=== PATIENT | female | born 1995 | race Caucasian/White ===

== ENCOUNTER 2019-07-23 11:38 | Observation (INO) | payer BC ==
[2019-07-23 12:54] LABS: #Lymphocytes 0.8 thou/uL (1.20-3.40); #Monocytes 0.6 thou/uL (0.11-0.59); %Basophils 0.1 % (0.0-1.0); %Eosinophils 0.1 % (0.0-10.0); %Lymphocytes 5.7 % (21.0-51.0); %Monocytes 3.9 % (0.0-10.0); %Neutrophils 90.2 % (42.0-75.0); Hemoglobin 10.5 g/dL (12.0-16.0); Mean Corpuscular HGB CONC 34.3 g/dL (32.0-36.0); Mean Corpuscular Hemoglobin 30.7 pg (27.0-31.0); Mean Corpuscular Volume 89.7 fL (78.0-98.0); Mean Platelet Volume 9.9 fL (7.4-10.4); Platelet Count 208 thou/uL (130-400); RBC Distribution Width 11.4 % (11.5-14.5); Red Blood Cell (RBC) Count 3.41 mill/uL (4.20-5.40); White Blood Cell (WBC) Count 14.4 thou/uL (4.8-10.8)
[2019-07-23 13:02] LABS: BHCG - Serum Negative (NEGATIVE); Pregs Control Background? CLEAR/WHITE (CLR/WHITE); Pregs Control Bar Appear? YES (CONTROL BAR)
[2019-07-23 13:22] LABS: ALT (SGPT) 11 U/L (8-55); AST (SGOT) 11 U/L (5-34); Albumin 4.5 g/dL (3.5-5.0); Alkaline Phosphatase 73 U/L (40-110); Anion Gap 14 mmol/L (10-20); BUN (Urea Nitrogen) 17 mg/dL (7.0-18.7); Bilirubin, Total 0.5 mg/dL (0.2-1.2); Calc. Creatinine Clearance 0 mL/min (70-130); Calcium 9.3 mg/dL (7.8-10.44); Carbon Dioxide 22 mmol/L (22-29); Chloride 105 mmol/L (98-107); Estimated GFR-MDRD Greater than 90; Globulin 2.2 g/dL (2.4-3.5); Glucose 150 mg/dL (70-105); Lipase 9 U/L (8-78); Potassium 4.4 mmol/L (3.5-5.1); Protein, Total 6.7 g/dL (6.0-8.3); Sodium 137 mmol/L (136-145)
[2019-07-23] MEDS ORDERED: Ondansetron PF 4 MG/2 ML Vial ONE ×2 (14:04→19:57)
[2019-07-23] MEDS ORDERED: cefOXitin 2 GM VIAL ONE (14:04)
--- NOTE | 2019-07-23 14:22 | ULT ---
US Pelvic W Doppler HISTORY: Pelvic pain COMPARISON: None TECHNIQUE: Multiple grayscale and color Doppler images were obtained in a transabdominal pelvic ultra sound. Spectral analysis of the Doppler waveforms of the ovaries were performed. FINDINGS: Uterus is heterogeneous. There is prominence of the endometrium. About the uterus, there is complex f ree pelvic fluid. Within the right ovary there is a complex hypoechoic focus with internal increased echogenicity, measuring 2.6 x 2.1 cm. Left ovary is not visualized for comment. Urinary lissa dder is decompressed. IMPRESSION: 1. Abnormal complex appearing free pelvic fluid, moderate in volume. This could either relate to inf ectious/inflammatory process, or alternatively could relate to rupture of hemorrhagic follicle or sequela from ruptured ectopic . This should be correlated with laboratory values, including beta hCG values. 2. Complex right adnexal cystic lesion that could relate to a hemorrhagic follicle. This should be f ollowed at a 6 week interval to confirm physiologic resolution. Transcribed Date/Time: 07/23/2019 2:37 PM
[2019-07-23] MEDS ORDERED: Fentanyl 100 MCG/2 ML VIAL ONE ×4 (15:24→18:09)
--- NOTE | 2019-07-23 15:46 | CT ---
CT abdomen and pelvis with IV and oral contrast HISTORY: Pelvic pain. Abnormal sonogram. Free fluid. Tachycardia. FINDINGS: Lung bases are clear. Solid organs of the abdomen are intact. No evidence of bowel obstruct ion. Moderate amount of free fluid within the pelvis, extending into the abdomen. The fluid is slightly hy perdense in the abdomen and more hyperdense within the pelvis, surrounding the uterus and adnexa. Cyst at the right adnexa measures up to 3.0 cm greatest diameter on the CT exam. Fluid is seen within the endometrial cavity of the nonenlarged uterus. IMPRESSION: Moderate amount of hyperdense fluid throughout the abdomen and pelvis, favored to be bloo d, of gynecologic origin. Right ovarian cyst 3.0 cm.
[2019-07-23 16:11] LABS: Bilirubin Small (Negative); Blood, Urine Negative (Negative); Glucose, Urine (Dipstick) Negative (Negative); Leukocyte Negative (Negative); Nitrite Negative (Negative); Protein, Urine (Dipstick) Trace mg/dL (Neg-Trace); Urobilinogen 0.2 mg/dL (Less than 2)
[2019-07-23 16:13] LABS: Pregnancy Test - Urine (BHCG) Negative (Negative); Pregu Control Background? CLEAR/WHITE (CLR/WHITE); Pregu Control Bar Appear? YES (CONTROL BAR); Specific Gravity 1.029 (1.002-1.036)
[2019-07-23 16:15] LABS: Squamous Epithelial 21-50 HPF (0-3)
[2019-07-23 16:16] LABS: Clarity Clear (Clear)
[2019-07-23 16:19] LABS: Bacteria/HPF 1+ HPF (None Seen)
[2019-07-23 17:25] LABS: Lactic Acid 2.8 mmol/L (0.5-2.2)
[2019-07-23] MEDS ORDERED: Midazolam HCl 2 mg/2 ml Vial ONE ×2 (17:44→18:09)
[2019-07-23] MEDS ORDERED: Methylene Blue 50 MG/10 ML AMPUL ONE (17:52)
[2019-07-23] MEDS ORDERED: Bupivacaine HCl 0.5%/Epinephrine 1:200,000/PF 30 ml Vial ONE (17:52)
[2019-07-23] MEDS ORDERED: HYDROmorphone 0.5 MG/0.5 ML SYRINGE ONE (18:09)
[2019-07-23] MEDS ORDERED: Promethazine HCl 25 MG/ML VIAL ONE (18:10)
[2019-07-23] MEDS ORDERED: HYDROmorphone 2 MG/ML VIAL SLOW IVP PRN (19:17)
[2019-07-23] MEDS ORDERED: PACU-Morphine 4MG/ML VIAL SLOW IVP PRN (19:17)
[2019-07-23] MEDS ORDERED: Promethazine HCl 25 MG/ML VIAL SLOW IVP PRN ×2 (19:17)
[2019-07-23] MEDS ORDERED: Ondansetron HCl/PF 4 MG/2 ML Vial IVP PRN ×2 (19:17)
[2019-07-23] MEDS ORDERED: Promethazine HCl 25 MG/ML VIAL IM PRN ×2 (19:17)
[2019-07-23] MEDS ORDERED: PHENYLEPHRINE-NS 100 MCG/ML 10 ML SYRINGE ONE (19:57)
[2019-07-23] MEDS ORDERED: Dexamethasone 20 MG/5 ML VIAL ONE (19:57)
[2019-07-23] MEDS ORDERED: ePHEDrine 50 MG/ML VIAL ONE (19:57)
[2019-07-23] MEDS ORDERED: Rocuronium Bromide 10 MG/ML (10ML VIAL) ONE (19:57)
[2019-07-23] MEDS ORDERED: Glycopyrrolate 0.2 MG/ML 5 ML SYRINGE ONE (19:57)
[2019-07-23] MEDS ORDERED: PROPOFOL 200 MG/20 ML VIAL ONE (19:57)
[2019-07-23] MEDS ORDERED: Lidocaine 1% PF 5 ML VIAL ONE (19:57)
[2019-07-23 20:20] LABS: Hemoglobin 7.7 g/dL (12.0-16.0)
[2019-07-23] MEDS ORDERED: Morphine 2 MG/ML SYRINGE SLOW IVP PRN (20:40)
[2019-07-23] MEDS ORDERED: HYDROcodone/Acetaminophen 5/325 mg Tablet PO PRN ×2 (20:41)
[2019-07-23] MEDS ORDERED: Morphine 4 MG/ML VIAL SLOW IVP PRN (20:41)
--- NOTE | 2019-07-23 21:42 | PDOC.EVN ---
Event Note - Event Note Event Note: VSS in RR. H/H returns 7.7/22. Will observe overnight on [facility] floor and repeat H/H in AM.
--- NOTE | 2019-07-23 23:03 | OP ---
DATE OF PROCEDURE: 07/23/2019 [facility] SURGEON: Agustin Mendoza MD PREOPERATIVE DIAGNOSIS: Lower abdominal pain, suspected hemoperitoneum. POSTOPERATIVE DIAGNOSIS: Ruptured right ovarian cyst. PROCEDURES PERFORMED: 1. Diagnostic laparoscopy. 2. Right ovarian cystectomy. ESTIMATED BLOOD LOSS: 700 mL hemoperitoneum noted at time of operation. Minimal blood loss during the procedure. COMPLICATIONS: None. BRIEF PATIENT DESCRIPTION: Ms. Delacruz is a 23-year-old white, G0 with a last menstrual period of 07/03/2019, who presents after the onset of sharp lower abdominal pain last evening that extended to her upper abdomen. She has had 2 episodes of dizziness this morning. She initially went to urgent care and was sent here for further evaluation. Evaluation here demonstrated CT with fluid in the pelvis and an ultrasound that confirmed that along with a 3-cm enlarged right ovary. Hemoglobin in the ER was 10 and she was given 2 L of crystalloid. After evaluating the patient with these findings, the decision was made to proceed to the OR for laparoscopy. I did contact Dr. Mendoza to join me as I was not clear if the onset that this was gynecologic in origin. TECHNIQUE IN DETAIL: After good general endotracheal anesthesia was achieved, the patient was prepped and draped in the dorsal lithotomy position using Gal stirrups. The cervix was identified, and it was noted that she had a hymenal band. The Hulka tenaculum was easily placed through the cervical os and all the remaining instruments from the vagina were removed. Prior to this, the bladder then emptied of urine with a straight catheter. Attention was turned to the abdomen where the abdomen was insufflated and a 5 mm camera was placed. Incisions were made in the right and left lower quadrants. Copious amount of blood was seen and this was suctioned from the pelvis. The pelvis was carefully explored. The uterus was normal in size, shape, and contour. The left ovary and tube were within normal limits. The right ovary was seen to be ruptured along the base and active bleeding was seen. Grasping instruments were placed in the pelvis and the bleeding edges of the cyst were excised using the LigaSure device. There was also bleeding at the base of the cyst that was controlled also with the LigaSure device. The cyst was thoroughly irrigated at the conclusion of this and was noted to be hemostatic. The pelvis and upper abdomen were thoroughly irrigated and all blood was removed. At the completion of suctioning, it was determined that she had approximately 700 mL hemoperitoneum. The ovarian cyst edges were removed through a larger 10 mm port that had been placed during the procedure. These were sent for pathological analysis. The upper 10 mm port was closed under direct vision with Vicryl suture. All instruments had been removed. The skin of each incision was closed using 3-0 Monocryl in a subcuticular stitch. Glue was placed across all 3 incisions. Attention was then turned to the vagina where all instruments were then removed. No bleeding was noted. The patient was awakened and taken to the recovery room where an H and H was ordered. The patient will be observed overnight and will be watched carefully. Job ID: [id number] [facility]
[2019-07-24] MEDS: Dextrose 5%-Lactated Ringers 1,000 ML IV SCH ×2 (01:26→10:37)
[2019-07-24 06:52] LABS: #Lymphocytes 0.7 thou/uL (1.20-3.40); #Monocytes 0.6 thou/uL (0.11-0.59); #Neutrophils 7.7 thou/uL (1.40-6.50); %Basophils 0.2 % (0.0-1.0); %Eosinophils 0.1 % (0.0-10.0); %Lymphocytes 7.7 % (21.0-51.0); %Monocytes 6.4 % (0.0-10.0); %Neutrophils 85.6 % (42.0-75.0); Mean Corpuscular HGB CONC 35.6 g/dL (32.0-36.0); Mean Corpuscular Hemoglobin 31.9 pg (27.0-31.0); Mean Corpuscular Volume 89.6 fL (78.0-98.0); Platelet Count 133 thou/uL (130-400); RBC Distribution Width 11.4 % (11.5-14.5)
--- NOTE | 2019-07-24 07:03 | PDOC.EVN ---
Event Note - Event Note Event Note: Feels better this AM. VSS P= 90's. AF Abdomen soft, incisions clean. Hgb= 7.0. Plan: DC home with precautions on . RTC 2 weeks with [facility].
[2019-07-24 08:20] VITALS: BP 97/55; TEMP 98.4
[2019-07-24] MEDS ORDERED: FLU VACC QS2019-20(6MOS UP)/PF 60 MCG/0.5 ML SYRINGE IM ONE (09:00)
[2019-07-25 19:13] LABS: Chlamydia by PCR Not Detected (NotDetected); GC by PCR Not Detected (NotDetected)
== END 2019-07-24 11:30 | disposition home or self-care (01) ==
LOC: ERS 11:38 → 3SE 17:20
PROVIDERS: ADMIT Obstetrics & Gynecology; ATTEND Obstetrics & Gynecology
PROC: 0UB04ZZ Excision of Right Ovary, Percutaneous Endoscopic Approach (ICD-10-PCS; principal; 2019-07-23)
DX: N83.01 Follicular cyst of right ovary (principal); K66.1 Hemoperitoneum; Z88.0 Allergy status to penicillin
CPT/HCPCS: 36415; 74177; 76856; 80053; 81003; 81025; 83605; 83690; 84703; 85025; 86850; 86900; 86901; 87040; 87086; 87480; 87491; 87510; 87591; 87660; 88305; 93005; 93976; 96361; 96365; 96374; 96375; G0378; J0670; J0694; J1100; J1170; J2001; J2250; J2405; J2550; J2704; J3010; J3490; Q9968